=== PATIENT | female | born 1985 | race Caucasian/White ===

== ENCOUNTER 2017-02-15 19:53 | Emergency (ER) | payer OTHER ==
[~2017-02-15] VITALS: Ht 162.6 cm; Wt 78.2 kg
[~2017-02-15 19:53] MED LIST: AMOXICILLIN875 MG PO; ENDOCET 5-3251 EACH PO; MOTRIN800 MG PO; NAPROSYN500 MG PO; PERCOCET 5/31 TABLET PO; ~No Medications
[2017-02-15 20:50] LABS: ADD MIUA? YES; BILIRUBIN NEGATIVE; BLOOD MODERATE; COLOR YELLOW ((YELLOW)); GLUCOSE (STRIP) NEGATIVE; KETONES 5; LEUKOCYTES NEGATIVE; NITRITE NEGATIVE; PROTEIN (STRIP) 100; SPECIFIC GRAVITY 1.032 (1.000-1.030); UROBILINOGEN 0.2 MG/DL (0.2-1.0)
[2017-02-15 21:08] LABS: CHLORIDE 105 mEq/L (99-109); HEMATOCRIT 42.9 % (36.0-46.0); MCH 31.3 PG (29.0-34.0); MCHC 34.3 G/DL (30.0-36.0); MCV 91.3 FL (83-99); MEAN PLAT.VOLUME 10.9 uM^3 (9.5-12.4); PLATELET COUNT 217 K/uL (156-360); POTASSIUM 3.7 mEq/L (3.7-5.4); RBC DIS.WIDTH-CV 11.8 % (11.8-14.6); RBC DIS.WIDTH-SD 39.7 % (39-53); SODIUM 140 mEq/L (136-147); WHITE BLOOD COUNT 10.4 K/uL (4.1-10.2)
[2017-02-15 21:11] LABS: GLUCOSE 98 mg/dL (70-99)
[2017-02-15 21:12] LABS: ANION GAP 10 MEQ/L (2-14)
[2017-02-15 21:13] LABS: TOTAL BILIRUBIN 0.9 mg/dL (0.0-1.0)
[2017-02-15 21:14] LABS: ALKALINE PHOSPHATASE 53 IU/L (3-129); GFR ESTIMATE (CALCULATED) > 59 mL/min/
[2017-02-15 21:16] LABS: UREA NITROGEN (BUN) 15 mg/dL (9-23)
[2017-02-15 21:17] LABS: INFLUENZA A VIRAL ANTIGEN NEGATIVE; INFLUENZA B VIRAL ANTIGEN NEGATIVE
[2017-02-15 21:18] LABS: LIPASE 11 U/L (1.0-51.0)
[2017-02-15 21:23] LABS: QUANTITATIVE HCG < 4.0 MIU/ML
[2017-02-15 21:24] LABS: AMORPHOUS URATES CRYSTALS 1+; BACTERIA 1+ /HPF; CASTS NONE SEEN /LPF; CRYSTALS PRESENT; EPITHELIAL CELLS 1+ /HPF; MUCUS 1+ /LPF; RED BLOOD CELLS RARE /HPF (0-5); UCUL ADDED? NO; WHITE BLOOD CELLS RARE /HPF (0-5)
[2017-02-15] MEDS ORDERED: ULTRAM50 MG PO (22:07)
[2017-02-15] MEDS ORDERED: ZOFRAN4 MG PO (22:07)
[2017-02-15] MEDS ORDERED: MOTRIN600 MG PO (22:07)
[2017-02-15 22:17] VITALS: BP 126/62
== END 2017-02-15 22:18 | disposition home or self-care (01) ==
LOC: EME 19:53
PROVIDERS: Physician Assistant
DX: R10.10 Upper abdominal pain, unspecified (principal); R11.2 Nausea with vomiting, unspecified; R19.7 Diarrhea, unspecified; F17.200 Nicotine dependence, unspecified, uncomplicated
CPT/HCPCS: 80053; 81003; 83690; 84702; 85027; 87502; 99281; 99283; J1885

== ENCOUNTER 2018-07-14 14:17 | Emergency (ER) | payer OTHER ==
[~2018-07-14] VITALS: Ht 162.6 cm; Wt 77.2 kg
[~2018-07-14 14:17] MED LIST changes: +MOTRIN600 MG PO; +ULTRAM50 MG PO; +ZOFRAN4 MG PO
[2018-07-14 21:38] VITALS: BP 124/69
== END 2018-07-14 21:38 | disposition home or self-care (01) ==
LOC: EME 14:17
DX: O07.4 Failed attempted termination of pregnancy without complication (principal); O99.331 Smoking (tobacco) complicating pregnancy, first trimester; F17.200 Nicotine dependence, unspecified, uncomplicated; Z3A.01 Less than 8 weeks gestation of pregnancy
CPT/HCPCS: 76801; 99281; 99283; J1885